=== PATIENT | male | born 1940 | race Caucasian/White ===

== ENCOUNTER 2020-04-20 18:40 | Inpatient (IN) | payer MEDICARE, OTHER ==
[~2020-04-20] VITALS: Ht 185.4 cm; Wt 100.2 kg
[~2020-04-20 18:40] MED LIST: ALBU90OI PO; BUDE10.22 INH; CARV25 PO; HYDACE5 PO; LISI20 PO; LOSHYD PO; OMEP20ER; ONDA4 PO; SIMV40 PO; TIOT18 INH; TYLENOL PM PO
[2020-04-20] MEDS ORDERED: AMLODIPINE BESY10 MG PO (19:07)
[2020-04-20] MEDS ORDERED: HYDCHL25 PO ×2 (19:08→20:50)
[2020-04-20] MEDS ORDERED: LOSA25 PO (19:09)
[2020-04-20 19:34] LABS: BASOPHILS ABSOLUTE AUTO 0.02 K/mm3 (0.00-0.23); BASOPHILS PERCENT AUTO 0 % (0-2); EOSINOPHILS ABSOLUTE AUTO 0.37 K/mm3 (0.00-0.68); EOSINOPHILS PERCENT AUTO 3 % (0-6); Hematocrit 35.9 % (37.0-53.0); Hemoglobin 12.3 g/dL (13.5-17.5); IMMATURE GRAN ABSOLUTE AUTO 0.08 K/mm3 (0.00-0.10); IMMATURE GRAN PERCENT AUTO 1 % (0-1); LYMPHOCYTES ABSOLUTE AUTO 1.05 K/mm3 (0.84-5.20); LYMPHOCYTES PERCENT AUTO 9 % (21-46); MONOCYTES ABSOLUTE AUTO 1.25 K/mm3 (0.16-1.47); MONOCYTES PERCENT AUTO 11 % (4-13); Mean Corpuscular HGB 27.2 pg (26.0-34.0); Mean Corpuscular HGB Conc 34.3 g/dL (31.5-36.5); Mean Corpuscular Volume 79 fL (80-100); Mean Platelet Volume 9.7 fL (9.1-12.4); NEUTROPHILS ABSOLUTE AUTO 8.37 K/mm3 (1.96-9.15); NEUTROPHILS PERCENT AUTO 75 % (41-73); Platelet Count 266 K/mm3 (150-400); RDW Coefficient Variation 13.6 % (11.7-14.2); RDW Standard Deviation 39.4 fL (35.1-46.3); Red Blood Cell Count 4.53 M/mm3 (4.30-5.90); White Blood Cell Count 11.14 K/mm3 (4.00-11.30)
[2020-04-20 19:48] LABS: Alanine Aminotransfer (ALT/SGP 30 U/L (12-78); Albumin/Globulin Ratio 0.6 (0.8-1.8); Alk Phos 107 U/L (50-136); Anion Gap 10 mmol/L (6-16); Aspartate Aminotrans (AST/SGOT 31 U/L (12-37); Bilirubin, Total 0.5 mg/dL (0.1-1.0); Blood Urea Nitrogen 19 mg/dL (8-24); Bun/Creatinine Ratio 19.4 (12.0-20.0); CO2, Blood 23 mmol/L (21-32); Calcium, Blood 8.5 mg/dL (8.5-10.1); Chloride, Blood 89 mmol/L (98-108); Creatinine, Blood 0.98 mg/dL (0.60-1.20); Globulin, Blood 4.8 g/dL (2.2-4.0); Glomerular Filtration Rate >60 (60-); Glucose, Blood 116 mg/dL (70-99); Potassium, Blood 3.2 mmol/L (3.5-5.5); Sodium, Blood 122 mmol/L (136-145); Total Protein, Blood 7.8 g/dL (6.4-8.2); Troponin I <0.015 ng/mL (0.000-0.040)
[2020-04-20] MEDS ORDERED: METO2.5 PO (20:49)
[2020-04-20] MEDS ORDERED: Potassium Chlo20 ME1 PO (20:49)
[2020-04-20] MEDS ORDERED: CARVEDILOL25 MG PO (20:50)
[2020-04-20] MEDS ORDERED: Prozac20 MG PO (20:50)
[2020-04-20] MEDS ORDERED: Simvastatin40 MG PO (20:50)
[2020-04-20] MEDS ORDERED: TRAZ50 PO (20:51)
[2020-04-20] MEDS ORDERED: OMEP20ER PO (20:51)
[2020-04-20] MEDS ORDERED: LOSA50 PO (20:52)
--- NOTE | 2020-04-20 22:17 | NUR ---
transfer report from [facility] RN in ER Covid positive PT on 04/11/2020 with increased SOB , hypoxia. Bilat pneumonia on CXR with room sats 93 to 88%. 3 l nc applied in ER. PT uses home CPAP but did not bring. 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 Await admission.
[2020-04-21] MEDS ORDERED: BENADRYL25 MG PO (01:29)
[2020-04-21] MEDS ORDERED: ACET325 PO (01:30)
[2020-04-21] MEDS ORDERED: DOCU100 PO (01:31)
[2020-04-21] MEDS ORDERED: CENTRUM SILVER1 EAC2 PO (01:32)
[2020-04-21] MEDS ORDERED: ZYRTEC10 M1 PO (01:33)
[2020-04-21] MEDS ORDERED: ALBU90OI INH (01:33)
[2020-04-21] MEDS ORDERED: FLONASE ALLERG9.9 ML (01:33)
[2020-04-21] MEDS ORDERED: TESSALON PERLE100 MG PO (01:33)
--- NOTE | 2020-04-21 03:46 | NUR ---
79 year old MAle with pacemaker placed at least 3 years ago covid 19 positive since APR 11 admitted with hypoxia & bilat pneumonia. Full code status discussed. Up with 1 assist to bathroom tolerated fair. oxygen 3 l nc. Poor appetite with unplanned wt loss. Supplement & soft snacks offered taken poorly.
[2020-04-21 05:29] LABS: Anion Gap 10 mmol/L (6-16); Blood Urea Nitrogen 15 mg/dL (8-24); Bun/Creatinine Ratio 19.7 (12.0-20.0); CO2, Blood 22 mmol/L (21-32); Calcium, Blood 7.6 mg/dL (8.5-10.1); Chloride, Blood 93 mmol/L (98-108); Creatinine, Blood 0.76 mg/dL (0.60-1.20); Glomerular Filtration Rate >60 (60-); Glucose, Blood 192 mg/dL (70-99); Potassium, Blood 3.1 mmol/L (3.5-5.5); Sodium, Blood 125 mmol/L (136-145)
[2020-04-21 13:42] LABS: Anion Gap 10 mmol/L (6-16); Blood Urea Nitrogen 13 mg/dL (8-24); Bun/Creatinine Ratio 18.6 (12.0-20.0); CO2, Blood 22 mmol/L (21-32); Calcium, Blood 7.8 mg/dL (8.5-10.1); Chloride, Blood 95 mmol/L (98-108); Glomerular Filtration Rate >60 (60-); Glucose, Blood 184 mg/dL (70-99); Potassium, Blood 3.3 mmol/L (3.5-5.5); Sodium, Blood 127 mmol/L (136-145)
--- NOTE | 2020-04-21 17:33 | NUR ---
PATIENT A/OX4, UP WITH FWW AND SBA TO RESTROOM. VSS, ON 3LO2 TO MAINTAIN SATS. IV TO R AC WNL AND SL. K+ REPLACED THIS SHIFT. SKIN INTACT. TOLERATING ADA DIET. NSR WITH A BBB ON TELE, RATE 70-90'S. PATIENT HAS A PACEMAKER. DROPLET CONTACT PRECAUTIONS, PATIENT IS COVID 19 POSTIVE. RECEIVING DECADRON AND REMDESIVIR. CALM AND COOPERATIVE WITH CARE CALLS APPROPRIATELY FOR ASSISTANCE.
--- NOTE | 2020-04-22 00:17 | NUR ---
PT STATES THAT HE IS EXPERIENCING INCREASED COUGHING, HE NOTICES THAT HE IS COUGHING MORE "GUNK" UP WELL. HE STATES IT FEELS LOOSE AND RATTLE-Y. PT STATES IT ISN'T ENOUGH OF A CONCERN TO WANT MEDICATION FOR IT BUT WILL LET THIS RN KNOW IF IT DOES BECOME A CONCERN.
--- NOTE | 2020-04-22 04:48 | NUR ---
LATE ENTRY 0350 PT CALLED STATING THAT HE COULDN'T CATCH HIS BREATH. PT IS DIAPHORETIC, RR 32/MIN, O2 SAT 86% 3LNC. LUNGS SOUND WET, TIGHT, AND WHEEZY. RT CALLED, RECOMMENDED BIPAP PROTOCAL ORDER AND CPAP. DR. WOODARD NOTIFIED, ORDERS OBTAINED. 0410 PT ON CPAP, ALBUTEROL NEB GIVEN. O2 SAT @ 94%, RR 24/MIN. PT STATES HE IS FEELING BETTER AND FEELS LIKE HE IS GETTING AIR AGAIN.
--- NOTE | 2020-04-22 05:20 | NUR ---
SHIFT SUMMARY PT WOKE UP AROUND 0350 WITH SOB, SEE NURSES NOTE. OTHERWISE NO OTHER ACUTE CHANGES THIS SHIFT. PT HAD SOME TROUBLE GETTING TO SLEEP D/T INCREASED COUGHING. PT IS SBA WITH FWW TO BATHROOM. A&O X4, CALLS APPROPRIATELY. PT IS NOW ON CPAP WITH 8L O2 BLEEDIN. PT IS SITTING UP IN BED, EVEN AND UNLABORED REPSIRATIONS. BED IN LOWERED POSITION WITH SIDE RAILS UP X2 FOR SAFETY. CALL LIGHT AND PERSONAL ITEMS WITH IN REACH. NO APPARENT NEEDS OR DISTRESS AT THIS TIME, WILL CONTINUE TO MONITOR UNTIL REPORT GIVEN TO DAY RN.
[2020-04-22 05:25] LABS: Anion Gap 9 mmol/L (6-16); Blood Urea Nitrogen 11 mg/dL (8-24); Bun/Creatinine Ratio 16.5 (12.0-20.0); CO2, Blood 23 mmol/L (21-32); Calcium, Blood 8.2 mg/dL (8.5-10.1); Chloride, Blood 97 mmol/L (98-108); Creatinine, Blood 0.67 mg/dL (0.60-1.20); Glomerular Filtration Rate >60 (60-); Glucose, Blood 122 mg/dL (70-99); Potassium, Blood 3.1 mmol/L (3.5-5.5); Sodium, Blood 129 mmol/L (136-145)
--- NOTE | 2020-04-22 13:21 | NUR ---
SECONDARY TUBING HANGING REMDESIVIR WAS PULLED WHILE TRANSFERRING PATIENT AND BECAME UNSPIKED AND SPILLED ALL OVER THE FLOOR. 2ND BAG REQUESTED FROM PHARMACY.
--- NOTE | 2020-04-22 18:44 | NUR ---
PATIENT UP IN CHAIR FOR MOST OF SHIFT. DID NOT USE CPAP TODAY, BUT DOES WEAR IT AT NIGHT. SKIN INTACT. VSS, ON 3LO2 TO MAINTAIN SATS. DENIES ANY PAIN. COUGING UP MODERATE AMOUNT OF BROWN/THICK SPUTUM. A/OX4, CALLS APPROPRIATELY FOR ASSISTANCE. UP WITH FWW AND SBA TO RESTROOM, CONTINENT OF URINE STOOL. NO ACUTE CHANGES THIS SHIFT.
--- NOTE | 2020-04-23 04:29 | NUR ---
SUMMARY PT DENIES CP OR PRESSURE. PT DID C/O OF SOB WAKING HIM UP AFTER GOING TO SLEEP. SOB RESOLVED WITH ELEVATING HEAD OF BED. PT HAS BEEN SLEEPING WELL SINCE REPOSITIONING. PT CURRENTLY SLEEPING AND IN NO DISTRESS. CALL LIGHT IN REACH.
[2020-04-23 05:24] LABS: Anion Gap 8 mmol/L (6-16); Blood Urea Nitrogen 16 mg/dL (8-24); Bun/Creatinine Ratio 25.2 (12.0-20.0); CO2, Blood 24 mmol/L (21-32); Calcium, Blood 8.4 mg/dL (8.5-10.1); Chloride, Blood 100 mmol/L (98-108); Creatinine, Blood 0.64 mg/dL (0.60-1.20); Glomerular Filtration Rate >60 (60-); Glucose, Blood 103 mg/dL (70-99); Potassium, Blood 3.7 mmol/L (3.5-5.5); Sodium, Blood 132 mmol/L (136-145)
--- NOTE | 2020-04-23 18:18 | NUR ---
SHIFT SUMMARY: NO ACUTE EVENTS THIS SHIFT. DENIED PAIN. PRODUCTIVE COUGH WITH THICK YELLOW SPUTUM. O2 @ 3 L/MIN NC, SAT > 92%, CPAP WITH O2 BLEED IN AT HS. DOES NOT USE OXYGEN AT HOME. NO EVENTS ON TELEMETRY, SR WITH BBB RATE IN THE 80-90'S. IN CHAIR FOR ENTIRE SHIFT. AMBULATED WITH FWW AND SBA TO BR. WAS HAVING PERSISTENT COUGHING, UNABLE TO REST; GAVE ROBITUSSIN WITH CODEINE X 1 WITH SOME RELIEF. APPETITE OK, ENCOURAGED PO FLUIDS.
--- NOTE | 2020-04-24 04:55 | NUR ---
SUMMARY PT HAD NO ISSUES NOTED. PT STILL GETS SOB W/EXERTION. PT HAS SLEPT WELL VIA CPAP. PT REPORTS FEELING BETTER TODAY. PT CURRENTLY AWAKE WATCHING TV. CALL LIGHT IN REACH.
[2020-04-24 05:14] LABS: Anion Gap 6 mmol/L (6-16); Blood Urea Nitrogen 15 mg/dL (8-24); Bun/Creatinine Ratio 24.8 (12.0-20.0); CO2, Blood 27 mmol/L (21-32); Calcium, Blood 8.5 mg/dL (8.5-10.1); Chloride, Blood 98 mmol/L (98-108); Glomerular Filtration Rate >60 (60-); Glucose, Blood 110 mg/dL (70-99); Potassium, Blood 3.8 mmol/L (3.5-5.5); Sodium, Blood 131 mmol/L (136-145)
--- NOTE | 2020-04-24 08:21 | NUR ---
OXYGEN TITRATED DOWN TO 2 L/MIN NC, O2 SAT 92-94%. PATIENT TOLERATING WELL. WILL CONTINUE TO WEAN ABLE.
--- NOTE | 2020-04-24 18:29 | NUR ---
SHIFT SUMMARY: NO ACUTE EVENTS. O2 HAS BEEN TITRATED DOWN TO 1 L/MIN NC WITH O2 SAT 94-95%. GOOD APPETITE AND PO FLUID INTAKE. NO EVENTS ON TELEMETRY, SR 70-80'S. WAS UP IN RECLINER ENTIRE SHIFT. HAD A SHOWER, TOLERATED FAIR. C/O RASH IN GROIN; RECEIVED ORDER FOR CLOBETASOL CREAM WHICH PATIENT APPILED HIMSELF. DENIED PAIN. STATED HE FEELS MUCH BETTER TODAY, IS LOOKING FORWARD TO GOING HOME.
--- NOTE | 2020-04-25 05:46 | NUR ---
SHIFT SUMMARY NO ACUTE CHANGES THIS SHIFT. AOX4. VSS. TELE NSR @83. DENIES PAIN, N/V. REPORTS BREATHING IS BETTER & HE ONLY FEELS SOB c MOVEMENT/REPOSITIONING IN THE BED & LYING FLAT. CONT PULSE OX 95% ON 1L. WORE CPAP WHILE ASLEEP. LUNGS SOUND DIM. HAS OCCASIONAL COUGH c SMALL AMOUNT YELLOW/WHITE SPUTUM, GAVE GUAIFENESIN c CODEINE PER ORDERS. +1 EDEMA IN BLE. REPORTS CONSTIPATION & NO BM IN FEW DAYS, GAVE MOM PER ORDERS. CALL LIGHT IN REACH. WILL MONITOR.
[2020-04-25 08:40] LABS: Anion Gap 5 mmol/L (6-16); Blood Urea Nitrogen 15 mg/dL (8-24); CO2, Blood 28 mmol/L (21-32); Calcium, Blood 8.1 mg/dL (8.5-10.1); Chloride, Blood 98 mmol/L (98-108); Glomerular Filtration Rate >60 (60-); Glucose, Blood 85 mg/dL (70-99); Potassium, Blood 3.9 mmol/L (3.5-5.5); Sodium, Blood 131 mmol/L (136-145)
--- NOTE | 2020-04-25 17:14 | NUR ---
SHIFT SUMMARY PT ON 1 LITER OXYGEN VIA NC. OCCASIONAL PRODUCTIVE COUGH. PT UP TO CHAIR MOST OF THE WITH A GOOD APPETITE. NO COMPLAINTS THIS SHIFT. NO ACUTE CHANGES AT THIS TIME. CALL LIGHT IN REACH. WILL CONTINUE TO MONITOR AND REPORT TO ONCOMING RN.
--- NOTE | 2020-04-25 17:22 | NUR ---
Spiritual care note: Mr. Atkinson was pleasant and very sleepy. 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 He feels well loved and supported by family. His grand-dtr is caring for his currently. Mr. Bill reports hope for recovery and denied concerns. He is non-rastafarian, but responded well to encouragement and affirmation. I will remain available.
--- NOTE | 2020-04-26 04:13 | NUR ---
SHIFT SUMMARY AOX4. VSS. TELE NSR @65. DENIES PAIN, N/V. DENIES DYSPNEA @REST OR c EXERTION. STATES HIS BREATHING IS BETTER. TITRATED PT OFF O2 AROUND 0200. SPO2 90-94% ON RA. PT ASKED FOR NC TO BE @BEDSIDE FOR COMFORT. WORE CPAP WHILE ASLEEP W/O O2 BLEED IN & SPO2 >90%. E/U RESPIRATIONS. LUNGS SOUND DIM IN BASES. STILL HAS OCCASIONAL PRODUCTIVE COUGH, MEDICATED 2X c GUAIFENESIN/CODEINE & PT STATES RELIEF. PT STATES HE IS FEELING BETTER BUT NOT READY TO RETURN HOME QUITE YET & WOULD LIKE TO STAY IN HOSPITAL 1 MORE NIGHT. CALL LIGHT IN REACH. WILL MONITOR.
[2020-04-26 05:40] LABS: Anion Gap 3 mmol/L (6-16); Blood Urea Nitrogen 16 mg/dL (8-24); Bun/Creatinine Ratio 27.2 (12.0-20.0); CO2, Blood 31 mmol/L (21-32); Calcium, Blood 8.1 mg/dL (8.5-10.1); Chloride, Blood 96 mmol/L (98-108); Creatinine, Blood 0.59 mg/dL (0.60-1.20); Glomerular Filtration Rate >60 (60-); Glucose, Blood 98 mg/dL (70-99); Sodium, Blood 130 mmol/L (136-145)
--- NOTE | 2020-04-26 18:04 | NUR ---
NO ACUTE CHANGES TO PT. HE REMAINS STABLE ON RA WITH NO COMPLAINTS OF SOB OR ANY DISTRESS. HE IS INDEPENDENT IN THE ROOM AND ABLE TO EXPRESS ANY NEEDS. PT TO DISCHARGE SATURDAY HOME PER CONVERSATION WITH DOCTOR. CALL LIGHT WITHIN REACH.
--- NOTE | 2020-04-27 04:49 | NUR ---
SHIFT SUMMARY NO ACUTE CHANGES TO REPORT THIS SHIFT. PT HAS BEEN AWAKE A GOOD PORTION OF THE SHIFT. CALLS FREQUENTLY TO USE THE BATHROOM, PT ENCOURAGED TO USE URINAL BUT STATES THAT HE IS UNABLE TO. RESP E/U ON RA. SATS WNL. PT TO DC TODAY. ASSESSMENT UNCHANGED. BED IN LOWEST POSITON, CALL LIGHT WITHIN REACH.
[2020-04-27] MEDS ORDERED: GUAI600T33 PO (12:58)
[2020-04-27] MEDS ORDERED: DEXA6 PO (12:58)
--- NOTE | 2020-04-27 14:00 | NUR ---
DISCHARGE INSTRUCTIONS COMPLETED AND DISCUSSED WITH PT EXPRESSING UNDERSTANDING. SCRIPTS FAXED TO [facility]. TO [facility] VIA W/C.
== END 2020-04-27 13:46 | disposition home or self-care (01) | DRG 177 ==
LOC: ER 18:40 → MEDS 21:08
PROVIDERS: Family Medicine; Physician Assistant; ADMIT Internal Medicine
PROC: XW033E5 Introduction of Remdesivir Anti-infective into Peripheral Vein, Percutaneous Approach, New Technology Group 5 (ICD-10-PCS; 2020-04-21)
PROC: XW033E5 Introduction of Remdesivir Anti-infective into Peripheral Vein, Percutaneous Approach, New Technology Group 5 (ICD-10-PCS; principal; 2020-04-22)
PROC: XW033E5 Introduction of Remdesivir Anti-infective into Peripheral Vein, Percutaneous Approach, New Technology Group 5 (ICD-10-PCS; 2020-04-23)
PROC: XW033E5 Introduction of Remdesivir Anti-infective into Peripheral Vein, Percutaneous Approach, New Technology Group 5 (ICD-10-PCS; 2020-04-24)
PROC: XW033E5 Introduction of Remdesivir Anti-infective into Peripheral Vein, Percutaneous Approach, New Technology Group 5 (ICD-10-PCS; 2020-04-25)
DX: U07.1 COVID-19 (principal); J96.01 Acute respiratory failure with hypoxia; R57.1 Hypovolemic shock; J12.89 Other viral pneumonia; E87.1 Hypo-osmolality and hyponatremia; J44.9 Chronic obstructive pulmonary disease, unspecified; E87.6 Hypokalemia; Z87.891 Personal history of nicotine dependence
CPT/HCPCS: 36415; 71045; 80048; 80053; 83880; 84145; 84484; 85025; 87070; 87205; 93005; 93010; 94640; 94660; 94762; 96365; 96367; 96375; 99285-25; A9270; A9270-GY; J0456; J1650; J1956; J2930; J3480; J7030; J7050

== ENCOUNTER → 2020-05-04 | Outpatient (CLI) | payer MEDICARE, OTHER ==
[~2020-05-04] MED LIST changes: +ACET325 PO; +ALBU90OI INH; +AMLODIPINE BESY10 MG PO; +BENADRYL25 MG PO; +CARVEDILOL25 MG PO; +CENTRUM SILVER1 EAC2 PO; +DEXA6 PO; +DOCU100 PO; +FLONASE ALLERG9.9 ML; +GUAI600T33 PO; +HYDCHL25 PO; +LOSA25 PO; +LOSA50 PO; +METO2.5 PO; +OMEP20ER PO; +Potassium Chlo20 ME1 PO; +Prozac20 MG PO; +Simvastatin40 MG PO; +TESSALON PERLE100 MG PO; +TRAZ50 PO; +ZYRTEC10 M1 PO
[2020-05-04 20:25] LABS: Anion Gap 8 mmol/L (6-16); Blood Urea Nitrogen 19 mg/dL (8-24); Bun/Creatinine Ratio 23.9 (12.0-20.0); CO2, Blood 26 mmol/L (21-32); Calcium, Blood 8.2 mg/dL (8.5-10.1); Chloride, Blood 90 mmol/L (98-108); Glomerular Filtration Rate >60 (60-); Glucose, Blood 101 mg/dL (70-99); Potassium, Blood 3.3 mmol/L (3.5-5.5); Sodium, Blood 124 mmol/L (136-145)
== END ==
LOC: LAB SHORT 19:02
PROVIDERS: Family Medicine
DX: J44.9 Chronic obstructive pulmonary disease, unspecified (principal)
CPT/HCPCS: 80048

== ENCOUNTER → 2020-05-30 | Outpatient (CLI) | payer MEDICARE, OTHER ==
[~2020-05-30] MED LIST changes: +CARVEDILOL12.5 MG PO; +LOSARTAN POTASS25 M2 PO; +OXYC10TA19 PO; +TRELEGY ELLIPT1 EACH INH
[2020-05-30 20:16] LABS: BASOPHILS PERCENT AUTO 1 % (0-2); EOSINOPHILS ABSOLUTE AUTO 1.16 K/mm3 (0.00-0.68); EOSINOPHILS PERCENT AUTO 6 % (0-6); Hematocrit 38.4 % (37.0-53.0); Hemoglobin 12.5 g/dL (13.5-17.5); IMMATURE GRAN ABSOLUTE AUTO 0.23 K/mm3 (0.00-0.10); IMMATURE GRAN PERCENT AUTO 1 % (0-1); LYMPHOCYTES ABSOLUTE AUTO 1.94 K/mm3 (0.84-5.20); LYMPHOCYTES PERCENT AUTO 10 % (21-46); MONOCYTES ABSOLUTE AUTO 1.77 K/mm3 (0.16-1.47); MONOCYTES PERCENT AUTO 9 % (4-13); Mean Corpuscular HGB 27.1 pg (26.0-34.0); Mean Corpuscular HGB Conc 32.6 g/dL (31.5-36.5); Mean Corpuscular Volume 83 fL (80-100); Mean Platelet Volume 10.1 fL (9.1-12.4); NEUTROPHILS ABSOLUTE AUTO 13.95 K/mm3 (1.96-9.15); NEUTROPHILS PERCENT AUTO 73 % (41-73); Platelet Count 337 K/mm3 (150-400); RDW Coefficient Variation 15.4 % (11.7-14.2); RDW Standard Deviation 46.4 fL (35.1-46.3); Red Blood Cell Count 4.61 M/mm3 (4.30-5.90); White Blood Cell Count 19.15 K/mm3 (4.00-11.30)
[2020-05-30 20:35] LABS: Anion Gap 7 mmol/L (6-16); Blood Urea Nitrogen 14 mg/dL (8-24); Bun/Creatinine Ratio 20.5 (12.0-20.0); CO2, Blood 23 mmol/L (21-32); Calcium, Blood 9.3 mg/dL (8.5-10.1); Chloride, Blood 104 mmol/L (98-108); Creatinine, Blood 0.68 mg/dL (0.60-1.20); Glomerular Filtration Rate >60 (60-); Glucose, Blood 99 mg/dL (70-99); Potassium, Blood 4.4 mmol/L (3.5-5.5); Sodium, Blood 134 mmol/L (136-145)
== END | disposition home or self-care (01) ==
LOC: LAB SHORT 19:10 → PLD 19:10
PROVIDERS: Family Medicine
DX: J18.9 Pneumonia, unspecified organism (principal); I10 Essential (primary) hypertension
CPT/HCPCS: 80048; 83880; 85025

== ENCOUNTER 2020-06-26 17:43 | Inpatient (IN) | payer MEDICARE, OTHER ==
[~2020-06-26] VITALS: Ht 185.4 cm; Wt 87.7 kg
[~2020-06-26 17:43] MED LIST changes: -OXYC10TA19 PO
[2020-06-26] MEDS ORDERED: OXYC10TA19 PO (18:12)
[2020-06-26 18:36] LABS: Hematocrit 34.4 % (37.0-53.0); Hemoglobin 11.5 g/dL (13.5-17.5); Mean Corpuscular HGB 26.9 pg (26.0-34.0); Mean Corpuscular HGB Conc 33.4 g/dL (31.5-36.5); Mean Corpuscular Volume 81 fL (80-100); NRBC ABSOLUTE 0.03 K/mm3 (0.00-0.02); NRBC Auto 0.1 /100 WBC (0.0-0.2); RDW Coefficient Variation 16.4 % (11.7-14.2); RDW Standard Deviation 47.4 fL (35.1-46.3); Red Blood Cell Count 4.27 M/mm3 (4.30-5.90); White Blood Cell Count 39.92 K/mm3 (4.00-11.30)
[2020-06-26 18:43] LABS: Platelet Count 9 K/mm3 (150-400)
[2020-06-26 18:53] LABS: BAND PERCENT MAN 8 % (0-8); BASOPHILS PERCENT MAN 0 % (0-2); EOSINOPHILS ABSOLUTE MAN 1.19 K/mm3 (0.00-0.68); EOSINOPHILS PERCENT MAN 3 % (0-6); LYMPHOCYTES ABSOLUTE MAN 1.19 K/mm3 (0.84-5.20); LYMPHOCYTES PERCENT MAN 3 % (21-46); METAMYELOCYTE ABSOLUTE MAN 0.39 K/mm3 (0.00-0.00); METAMYELOCYTE PERCENT MAN 1 % (0-0); MONOCYTES ABSOLUTE MAN 0.79 K/mm3 (0.16-1.47); MONOCYTES PERCENT MAN 2 % (4-13); NEUTROPHILS ABSOLUTE MAN 36.32 K/mm3 (1.96-9.15); SEG NEUTROPHILS PERCENT MAN 83 % (41-73); TOTAL CELLS COUNTED 100
[2020-06-26 19:01] LABS: Alanine Aminotransfer (ALT/SGP 141 U/L (12-78); Albumin, Blood 2.2 g/dL (3.4-5.0); Albumin/Globulin Ratio 0.5 (0.8-1.8); Alk Phos 238 U/L (50-136); Anion Gap 11 mmol/L (6-16); Aspartate Aminotrans (AST/SGOT 389 U/L (12-37); Bilirubin, Total 1.2 mg/dL (0.1-1.0); Blood Urea Nitrogen 34 mg/dL (8-24); Bun/Creatinine Ratio 39.8 (12.0-20.0); CO2, Blood 23 mmol/L (21-32); Calcium, Blood 8.2 mg/dL (8.5-10.1); Chloride, Blood 102 mmol/L (98-108); Creatinine, Blood 0.85 mg/dL (0.60-1.20); Globulin, Blood 4.8 g/dL (2.2-4.0); Glomerular Filtration Rate >60 (60-); Glucose, Blood 132 mg/dL (70-99); Potassium, Blood 3.8 mmol/L (3.5-5.5); Sodium, Blood 136 mmol/L (136-145)
[2020-06-26] MEDS ORDERED: TRELEGY ELLIPT1 EACH INH (20:15)
[2020-06-27 03:44] LABS: Hematocrit 32.5 % (37.0-53.0); Hemoglobin 10.7 g/dL (13.5-17.5); Mean Corpuscular HGB 26.7 pg (26.0-34.0); Mean Corpuscular HGB Conc 32.9 g/dL (31.5-36.5); Mean Corpuscular Volume 81 fL (80-100); NRBC ABSOLUTE 0.03 K/mm3 (0.00-0.02); NRBC Auto 0.1 /100 WBC (0.0-0.2); RDW Coefficient Variation 16.3 % (11.7-14.2); RDW Standard Deviation 48.1 fL (35.1-46.3); Red Blood Cell Count 4.01 M/mm3 (4.30-5.90); White Blood Cell Count 38.27 K/mm3 (4.00-11.30)
[2020-06-27 03:47] LABS: Platelet Count 24 K/mm3 (150-400)
[2020-06-27 04:01] LABS: BAND PERCENT MAN 19 % (0-8); BASOPHILS PERCENT MAN 0 % (0-2); EOSINOPHILS ABSOLUTE MAN 1.91 K/mm3 (0.00-0.68); EOSINOPHILS PERCENT MAN 5 % (0-6); LYMPHOCYTES ABSOLUTE MAN 0.76 K/mm3 (0.84-5.20); LYMPHOCYTES PERCENT MAN 2 % (21-46); METAMYELOCYTE ABSOLUTE MAN 0.38 K/mm3 (0.00-0.00); METAMYELOCYTE PERCENT MAN 1 % (0-0); MONOCYTES ABSOLUTE MAN 1.53 K/mm3 (0.16-1.47); MONOCYTES PERCENT MAN 4 % (4-13); NEUTROPHILS ABSOLUTE MAN 33.67 K/mm3 (1.96-9.15); SEG NEUTROPHILS PERCENT MAN 69 % (41-73); TOTAL CELLS COUNTED 100
[2020-06-27 04:18] LABS: Alanine Aminotransfer (ALT/SGP 187 U/L (12-78); Albumin, Blood 2.7 g/dL (3.4-5.0); Albumin/Globulin Ratio 0.6 (0.8-1.8); Alk Phos 228 U/L (50-136); Anion Gap 11 mmol/L (6-16); Aspartate Aminotrans (AST/SGOT 441 U/L (12-37); Bilirubin, Total 1.7 mg/dL (0.1-1.0); Blood Urea Nitrogen 39 mg/dL (8-24); Bun/Creatinine Ratio 44.7 (12.0-20.0); CO2, Blood 23 mmol/L (21-32); Calcium, Blood 8.4 mg/dL (8.5-10.1); Chloride, Blood 102 mmol/L (98-108); Creatinine, Blood 0.87 mg/dL (0.60-1.20); Globulin, Blood 4.4 g/dL (2.2-4.0); Glomerular Filtration Rate >60 (60-); Glucose, Blood 132 mg/dL (70-99); Sodium, Blood 136 mmol/L (136-145); Total Protein, Blood 7.1 g/dL (6.4-8.2)
--- NOTE | 2020-06-27 06:29 | NUR ---
TRANSFER/ SHIFT SUMMARY PT ARRIVED TO ICU VIA GURNEY FROM THE ER. ADMITTED TO ICU FOR INCREASED DYSPNEA OVER THE LAST FEW DAYS AND HEMOPTYSIS. MOVED TO ICU BED VIA SLIDER SHEET. ALERT AND ORIENTED UPON ARRIVAL. ON 4 LPM O2 VIA NC c O2 SATS >90%. 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 PT ALSO RECENTLY RECOVERED FROM COVID, BUT STILL SUFFERING FROM SOB, LOSS OF SENSATION IN THE FINGERS AND FEET, AND DYSPNEA. PTS PLATELETS ALSO CRITICALLY LOW, PLATELET THERAPY INITIATED. PT PRESCRIBED 2LPM O2 VIA NC FROM PRIMARY PROVIDER AFTER CANCER DIAGNOSIS, BUT DUE TO EXTENUATING CIRCUMSTANCES, UNABLE TO GET OXYGEN DELIVERED. 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 WILL CONTINUE TO MONITOR.
--- NOTE | 2020-06-27 06:55 | NUR ---
UPDATE WHILE HELPING PT ADJUST POSITION, PT BEGAN C/O INCREASED COOLNESS IN BOTH HIS FEET. PT WITH SENSATION AND MOVEMENT IN BL FEET, BUT UNABLE TO PALPATE PULSES. HOSPITALIST CALLED, AWAITING CALL BACK. PT DENIES CP OR INCREASE IN SOB. WILL RELAY TO ONCOMING NURSE.
--- NOTE | 2020-06-27 12:40 | NUR ---
PT TRANSITIONED TO COMFORT CARE TODAY, BILAT UPPER AND LOWER EXT DUPLEX ZAHRA DONE TODAY PT HAS +DVT ON BOTH LOWER EXT BELOW CALF AND CLOT ON RA. PT HAS BEEN C/O LEG PAIN 8-10/10 PAIN LEVEL. AWARE OF RISKS AND BENEFITS OF STARTING HIM ON HEPARIN GTT, DR FERMIN TALKED TO THE PT AND SO PALLIATIVE CARE NURSE, PT DECIDED TO GO COMFORT CARE GIVEN THAT HE HAS LUNG CA WITH METS. DIET RESUME ON SOFT DIET, PT WAS ABLE TO TOLERATE, CONTINUES TO HAVE HEMOPTYSIS, OCCASIONAL MOIST COUGH. PT WAS STARTED ON IV MORPHINE, PT VERBALIZED EFFECTIVENESS AT THIS TIME. PT REPOSITONED IN BED, COMFORTABLE AT THIS TIME. PT A&OX4, ABLE TO MAKE NEEDS KNOWN, CALLS APPROPRIATELY CALL LIGHTS IN REACH, WILL MONITOR
--- NOTE | 2020-06-27 14:38 | NUR ---
PT TRANSFERRED TO ROOM 209, REPORT GIVEN TO CHRISTA LOPEZ, ALL BELONGINGS SENT WITH THE PT, PT TRANSFERRED VIA ICU BED ACCOMPANIED BY PCT.
--- NOTE | 2020-06-27 16:01 | NUR ---
COVID LAB CANCELLED. RAPID COVID DONE IN ER, NO NEED FOR FURTHER TESTING.
--- NOTE | 2020-06-27 16:07 | NUR ---
PT ARRIVED TO THE ROOM AT APPROXIMATELY 1400. PT IS ALERT AND ORIENTED. PAIN MANAGED WITH ROXANOL. FAMILY AT THE BEDSIDE. WILL CONTINUE TO MONITOR.
--- NOTE | 2020-06-27 18:00 | NUR ---
PT IS RESTING WITH EYES CLOSED AT THIS TIME. PT DECLINED DINNER. PT IS ABLE TO REPOSITION HIMSELF IN BED. FEET APPEAR MOTTLED/DUSKY, UNCHANGED SINCE PT ARRIVED TO THE UNIT. WILL CONTINUE TO MONITOR.
--- NOTE | 2020-06-27 18:08 | NUR ---
SHIFT SUMMARY NO CHANGES TO REPORT SINCE PT ARRIVED TO HIS ROOM. PAIN MANAGED WITH ROXANOL. PT'S FAMILY VISITED TODAY. WILL MONITOR UNTIL REPORT TO ONCOMING RN.
--- NOTE | 2020-06-28 03:45 | NUR ---
MOTOR COACH DRIVER SUMMARY A/OX3, SLEPT T/O THE NIGHT. CURRENTLY ON 4L VIA NC. C/O BILATERAL LEG PAIN, MEDICATED PER EMAR. DECREASED CIRCULATION TO L. RING FINGER D/T SWELLING, ABLE TO REMOVED RING. PLACED IN SPECIMEN CUP WITH PT LABEL LOCATED ON BEDSIDE TABLE. NO ACUTE CHANGES A THIS TIME. BED IN LOWEST POSITION WITH CALL LIGHT IN REACH. WILL CONTINUE TO MONITOR AND REPORT TO ONCOMING RN.
--- NOTE | 2020-06-28 17:31 | NUR ---
Spiritual care note: Mr. Bill let me know he was not taoism. He complained of unrelenting pain and told me he did not feel like talking. Informed palliative care of pt's pain. I will remain available.
--- NOTE | 2020-06-28 18:11 | NUR ---
pt painfull today, he is progressing pt is constipated and feeling of bloating. enema given pt feeling more preassure in anbdomen. Review of symptoms and medication needs with nursing. Shaniqua sent to see pt. Will continue to [facility] see if we can get him a bm he has not ate much for days. Review of his care with family suggested a face time or zoom so he can see his .
--- NOTE | 2020-06-28 18:18 | NUR ---
SHIFT SUMMARY PT UP IN CHAIR THIS MORNING ON ARRIVAL. ASSISTED BACK TO BED AFTER BREAKFAST. 1 PERSON ASSIST AND TOLERATED WELL. MEDICATED SEVERAL TIMES THIS AFTERNOON. REPORTED INABILITY TO VOID AFTER LUNCH. BLADDER SCANNED FOR GREATER THAN 535. HASKINS PLACED FOR COMFORT. DID ASK WHEN IT WOULD BE REMOVED AND I EXPLAINED IT STAYED IN UNLESS HE FELT THE NEED TO HAVE IT REMOVED. ALSO REPORTED FEELING VERY CONSTIPATED AND UNCOMFORTABLE FROM NOT HAVING A BM IN A WEEK. FLEET ENEMA GIVEN AND PT ABLE TO HOLD IT FOR AWHILE BUT NO BM OCCURED. UP TO BEDSIDE COMMODE WITH 2 PEOPLE. BECAME QUITE SOB WITH EFFORT TO HAVE A BM. O2 INCREASED. SKIN COLD TO TOUCH BUT HE DECLINES WARM BLANKETS WHEN OFFERED. L ARM SWOLLEN AND WEEPING. FINGERTIPS APPEAR MOTTLED THIS EVENING. TIP OF NOSE PURPLE WELL. RESP IMPROVED AND BREATHING CALMED AFTER LAYING BACK DOWN. HUMIDITY APPLIED FO COMFORT.
--- NOTE | 2020-06-29 05:04 | NUR ---
SHIFT SUMMARY PT ON COMFORT CARE, RESTING COMFORTABLY THROUGH MOST OF THE SHIFT, ORAL AND CATHETER CARE PROVIDED, DENIES NEED FOR PAIN MEDICATIONS. WILL CONTINUE TO MONITOR AND REPORT TO ONCOMING DAY RN.
--- NOTE | 2020-06-29 06:16 | NUR ---
FAMILY UPDATED ON PT STATUS T/O SHIFT. PT RESTING COMFORTABLY AT THIS TIME, CURRENTLY DENIES PAIN.
--- NOTE | 2020-06-29 07:40 | NUR ---
pt's and dr salguero notified via phone of time of . discussed with road gang supervisor no arrangements at this time iv and rahman cath removed bath given
--- NOTE | 2020-06-29 11:24 | NUR ---
family by to get pt belongings
--- NOTE | 2020-06-29 13:49 | NUR ---
pt transported to home by val perez
== END 2020-06-29 17:00 ==
LOC: ER 17:43 → ICUE 21:11 → ICUW 21:11 → ICUE 21:15 → SURS 06-27 14:41
PROVIDERS: Emergency Medicine; ADMIT Internal Medicine
DX: I82.A12 Acute embolism and thrombosis of left axillary vein (principal); I21.4 Non-ST elevation (NSTEMI) myocardial infarction; I26.99 Other pulmonary embolism without acute cor pulmonale; J96.01 Acute respiratory failure with hypoxia; C78.7 Secondary malignant neoplasm of liver and intrahepatic bile duct; C79.71 Secondary malignant neoplasm of right adrenal gland; J44.1 Chronic obstructive pulmonary disease with (acute) exacerbation; C34.32 Malignant neoplasm of lower lobe, left bronchus or lung; R04.2 Hemoptysis; Z66 Do not resuscitate; Z86.16 Personal history of COVID-19; Z51.5 Encounter for palliative care; K59.00 Constipation, unspecified; D69.6 Thrombocytopenia, unspecified; I10 Essential (primary) hypertension; E78.5 Hyperlipidemia, unspecified; K21.9 Gastro-esophageal reflux disease without esophagitis; Z95.0 Presence of cardiac pacemaker; Z87.891 Personal history of nicotine dependence
CPT/HCPCS: 36415; 36430; 71046; 80053; 84484; 85025; 86900; 86901; 93005; 93010; 93970; 93971; 94640; 94660; 94762; 96374; 96376; 99291-25; A9270; J1170; J1956; J2270; J2405; J2930; J3010; J7050; P9035; P9046